=== PATIENT | female | born 1995 | race Caucasian/White ===

== ENCOUNTER 2019-12-03 18:23 | Emergency (ER) | payer SELFPAY ==
[~2019-12-03] VITALS: Ht 167.6 cm; Wt 82.0 kg
[2019-12-03] MEDS ORDERED: ACETAMINOPHEN 325MG TABLET PO STA (19:32)
[2019-12-03] MEDS ORDERED: BACITRACIN ZINC OINT UDPKT TOP ONE (19:45)
[2019-12-03] MEDS ORDERED: ONDANSETRON 4MG ODT PO ONE (19:45)
[2019-12-03 21:38] VITALS: BP 116/70
[2019-12-03 23:35] LABS: *AMPHETAMINES SCREEN URINE NEGATIVE (NEGATIVE); *BARBITURATES SCREEN URINE NEGATIVE (NEGATIVE); *BENZODIAZEPINES SCREEN URINE NEGATIVE (NEGATIVE); *COCAINE SCREEN URINE NEGATIVE (NEGATIVE); METHADONE URINE SCREEN NEGATIVE (NEGATIVE); OPIATES URINE SCREEN NEGATIVE (NEGATIVE); PHENCYCLIDINE URINE SCREEN NEGATIVE (NEGATIVE)
[2019-12-03 23:40] LABS: CANNABINOID URINE SCREEN PRESUMTIVE POSITIVE (NEGATIVE)
== END 2019-12-03 22:50 | disposition left against medical advice (07) ==
LOC: ER 18:23
DX: T43.621A Poisoning by amphetamines, accidental (unintentional), initial encounter (principal); R55 Syncope and collapse; F18.188 Inhalant abuse with other inhalant-induced disorder; S42.492A Other displaced fracture of lower end of left humerus, initial encounter for closed fracture; S00.511A Abrasion of lip, initial encounter; S00.81XA Abrasion of other part of head, initial encounter; W18.39XA Other fall on same level, initial encounter; Y93.89 Activity, other specified; Y92.89 Other specified places as the place of occurrence of the external cause
CPT/HCPCS: 29105; 70450; 70486; 73080; 80305; 81025; 93005; 99285; Q0162